=== PATIENT | female | born 1955 | race Caucasian/White ===

== ENCOUNTER → 2017-03-27 | Outpatient (CLI) | payer BC ==
[~2017-03-27] MED LIST: CALCIUM 500 + D1 TAB PO; CELEXA10 MG PO; MAREPA1200 MG PO; PERCOCET 325 MG1 TA2 PO; TRI-EST PO; VAGIFEM10 MCG VG; ZOFRAN 4MG T4 MG/TAB PO
== END ==
LOC: MC.RAD 08:11
DX: Z12.31 Encounter for screening mammogram for malignant neoplasm of breast (principal); R92.1 Mammographic calcification found on diagnostic imaging of breast

== ENCOUNTER 2018-05-20 08:42 | Observation (INO) | payer BC ==
[~2018-05-20] VITALS: Ht 160 cm; Wt 59.1 kg
[2018-05-20 09:25] LABS: BASO # 0.1 (0.0-0.2); EOS # 0.2 (0.0-0.7); EOS % 3.2 % (0-4.0); GRAN # 3.7 (1.4-6.5); GRAN % 54.6 % (42.2-75.2); HEMATOCRIT 39.9 % (37.0-47.0); HEMOGLOBIN 13.4 g/dl (12.5-16.0); LYMPH # 2.2 (1.2-3.4); LYMPH % 31.5 % (20.0-51.0); MEAN CELL VOLUME 86 fl (80.0-100.0); MEAN CORPUSCULAR HEMOGLOBIN 29 pg (27.0-31.0); MEAN CORPUSCULAR HGB CONC 34 g/dl (33.0-37.0); MEAN PLATELET VOLUME 9.7 fl (7.4-10.4); MONO # 0.7 (0.1-0.6); MONO % 9.6 % (1.7-9.3); PLATELET COUNT 295 K/mm3 (130-400); RED BLOOD COUNT 4.62 M/mm3 (4.10-5.30); REDCELL DISTRIBUTION WIDTH-CV 13.2 % (11.5-14.5)
[2018-05-20 09:56] LABS: ALANINE AMINOTRANSFERASE 31 U/L (9-52); ALBUMIN 3.9 gm/dL (3.5-5.0); ALKALINE PHOSPHATASE 56 U/L (50-136); ANION GAP 8 mmol/L (7-16); AST,SGOT 40 U/L (15-37); BILIRUBIN,TOTAL 0.5 mg/dL (0.0-1.0); BLOOD UREA NITROGEN 14 mg/dL (7-17); CARBON DIOXIDE 27 mmol/L (22-30); CHLORIDE 100 mmol/L (98-107); CREATININE, serum 0.67 mg/dL (0.52-1.25); GLUCOSE 85 mg/dL (74-106); LIPASE 37 U/L (23-300); POTASSIUM 4.2 mmol/L (3.4-5.0); SODIUM 135 mmol/L (137-145)
[2018-05-20 09:57] LABS: C-REACTIVE PROTEIN < 0.5 mg/dL (0.0-0.9)
[2018-05-20 10:05] LABS: TROPONIN-I < 0.012 ng/mL (0.000-0.034)
[2018-05-20] MEDS ORDERED: IMITREX100 MG PO (11:25)
[2018-05-20] MEDS ORDERED: LIPITOR 10MG10 MG PO (11:25)
[2018-05-20 12:23] VITALS: BP 134/81; PULSE 63; TEMP 98.3
[2018-05-20 15:21] VITALS: BP 150/65; PULSE 65; TEMP 97.9
[2018-05-20 16:00] VITALS: BP 122/81; PULSE 63; TEMP 98.3
[2018-05-20 19:21] VITALS: BP 126/63; PULSE 71; TEMP 97.8
[2018-05-20 23:19] VITALS: BP 121/56; PULSE 63; TEMP 98.8
[2018-05-21] VITALS (7 sets, daily range): BP systolic 110–162; BP diastolic 61–77; PULSE 61–94; TEMP 97.5–98.1
[2018-05-21 07:32] LABS: BASO # 0.1 (0.0-0.2); BASO % 0.8 % (0.0-2.0); EOS # 0.2 (0.0-0.7); EOS % 3.5 % (0-4.0); GRAN # 3.5 (1.4-6.5); GRAN % 56.5 % (42.2-75.2); HEMOGLOBIN 13.1 g/dl (12.5-16.0); LYMPH # 1.8 (1.2-3.4); LYMPH % 28.3 % (20.0-51.0); MEAN CELL VOLUME 87 fl (80.0-100.0); MEAN CORPUSCULAR HEMOGLOBIN 29 pg (27.0-31.0); MEAN CORPUSCULAR HGB CONC 34 g/dl (33.0-37.0); MEAN PLATELET VOLUME 9.6 fl (7.4-10.4); MONO # 0.7 (0.1-0.6); MONO % 10.7 % (1.7-9.3); PLATELET COUNT 303 K/mm3 (130-400); RED BLOOD COUNT 4.51 M/mm3 (4.10-5.30); REDCELL DISTRIBUTION WIDTH-CV 13.1 % (11.5-14.5)
[2018-05-21 07:42] LABS: ANION GAP 9 mmol/L (7-16); BLOOD UREA NITROGEN 16 mg/dL (7-17); CALCIUM 8.9 mg/dL (8.4-10.2); CARBON DIOXIDE 25 mmol/L (22-30); CHLORIDE 100 mmol/L (98-107); CHOLESTEROL 161 mg/dL (120-200); CHOLESTEROL RISK RATIO 2.5; CREATININE, serum 0.66 mg/dL (0.52-1.25); GLUCOSE 89 mg/dL (74-106); HDL CHOLESTEROL 64 mg/dL; LDL CHOLESTEROL 86 mg/dL; POTASSIUM 4.2 mmol/L (3.4-5.0); SODIUM 134 mmol/L (137-145); TRIGLYCERIDE 57 mg/dL
[2018-05-21 07:53] LABS: TROPONIN-I < 0.012 ng/mL (0.000-0.034)
== END 2018-05-21 13:43 | disposition home or self-care (01) ==
LOC: COL.ER 08:42 → MEDICAL 11:19
PROVIDERS: Emergency Medicine; Hospitalist
DX: R07.89 Other chest pain (principal); R94.6 Abnormal results of thyroid function studies; R06.00 Dyspnea, unspecified; E78.5 Hyperlipidemia, unspecified; G43.909 Migraine, unspecified, not intractable, without status migrainosus
CPT/HCPCS: A9502; G0378; J2785

== ENCOUNTER → 2018-07-13 | Outpatient (CLI) | payer BC ==
[~2018-07-13] MED LIST changes: +IMITREX100 MG PO; +LIPITOR 10MG10 MG PO
== END ==
LOC: MC.RAD 15:58
DX: Z12.31 Encounter for screening mammogram for malignant neoplasm of breast (principal)

== ENCOUNTER → 2019-08-29 | Outpatient (CLI) | payer MEDICARE | LOC: MC.RAD 10:34 | DX: Z12.31 Encounter for screening mammogram for malignant neoplasm of breast (principal); Z98.82 Breast implant status ==

== ENCOUNTER → 2020-09-24 | Outpatient (CLI) | payer MEDICARE, OTHER | LOC: MC.RAD 09:15 | DX: Z12.31 Encounter for screening mammogram for malignant neoplasm of breast (principal) ==

== ENCOUNTER → 2021-11-07 | Outpatient (CLI) | payer MEDICARE | LOC: MC.RAD 09:19 | DX: Z12.31 Encounter for screening mammogram for malignant neoplasm of breast (principal) ==

== ENCOUNTER → 2022-11-28 | Outpatient (CLI) | payer MEDICARE | LOC: MC.RAD 09:03 | DX: Z12.31 Encounter for screening mammogram for malignant neoplasm of breast (principal) ==